=== PATIENT | male | born 1945 | race Caucasian/White ===

== ENCOUNTER 2017-09-05 13:16 | Outpatient (CLI) | payer OTHER ==
[2017-09-05 13:39] LABS: BASOPHILS % 0.3 (0.0-1.5); EOSINOPHILS % 1.3 % (0.0-6.8); MEAN CORPUSCULAR HEMOGLOBIN 21.3 pg (28.0-34.0); MEAN CORPUSCULAR VOLUME 73.5 fl (80.0-100.0); MONOCYTES % 1.1 % (0.0-11.0); NEUTROPHILS # 10.6 # k/uL (1.4-7.7)
[2017-09-05 13:51] LABS: eGFR (African) > 60; eGFR (Non-African) 53
== END 2017-09-05 13:18 ==
LOC: LAB 13:16
PROVIDERS: ATTEND Nurse Practitioner
DX: R06.09 Other forms of dyspnea (principal)
CPT/HCPCS: 36415; 80053; 83880; 85025

== ENCOUNTER 2017-11-29 10:00 | Outpatient (CLI) | payer OTHER ==
[2017-11-29 11:18] LABS: eGFR (Non-African) 53
== END 2017-11-29 10:02 ==
LOC: LAB 10:00
PROVIDERS: ATTEND Nurse Practitioner
DX: I27.20 Pulmonary hypertension, unspecified (principal)
CPT/HCPCS: 36415; 80048